=== PATIENT | female | born 1985 ===

== ENCOUNTER 2020-03-02 09:00 | Outpatient (REF) | payer OTHER, SELFPAY | END 2020-03-02 09:01 | disposition home or self-care (01) | LOC: HO.LNP 09:00 | PROVIDERS: PCP Family Medicine; Referring Provider Family Medicine; Visit Provider Obstetrics & Gynecology | DX: N92.1 Excessive and frequent menstruation with irregular cycle (principal); Z86.19 Personal history of other infectious and parasitic diseases | CPT/HCPCS: 58100; 81025; 88305 ==

== ENCOUNTER → 2020-03-09 11:33 | Outpatient (BNVA) | payer OTHER, SELFPAY | PROVIDERS: PCP Family Medicine; Visit Provider Obstetrics & Gynecology | DX: N92.1 Excessive and frequent menstruation with irregular cycle (principal); Z86.19 Personal history of other infectious and parasitic diseases; Z98.890 Other specified postprocedural states | CPT/HCPCS: 99213 ==